=== PATIENT | male | born 1980 ===

== ENCOUNTER 2017-04-28 05:24 | Inpatient (IN) | payer BC ==
[2017-04-28] MEDS: LIDOCAINE/MYLANTA 40 ML BTL PO (09:25)
[2017-04-28] MEDS: FAMOTIDINE 20 MG TAB PO (09:25)
[2017-04-28 09:29] LABS: ADD MAN DIFF? NO
[2017-04-28 09:33] LABS: ADD UMIC YES; UR ASCORBIC ACID NEGATIVE (NEGATIVE); UR BILIRUBIN (Dip) NEGATIVE (NEGATIVE); UR BLOOD (Dip) 1+ mg/dL (NEGATIVE); UR CLARITY CLEAR (CLEAR); UR COLOR YELLOW (YELLOW); UR GLUCOSE (Dip) 3+ mg/dL (NEGATIVE); UR KETONES (Dip) 2+ mg/dL (NEGATIVE); UR LEUKOCYTE ESTERASE (Dip) NEGATIVE Leu/ul (NEGATIVE); UR NITRITE (Dip) NEGATIVE (NEGATIVE); UR RBC 1 /HPF (0-5); UR SPECIFIC GRAVITY (Dip) 1.033 (1.003-1.030); UR TOTAL PROTEIN (Dip) 2+ mg/dl (NEGATIVE); UR UROBILINOGEN (Dip) NEGATIVE (NEGATIVE); UR WBC 0 /HPF (0-5)
[2017-04-28 09:36] LABS: WHITE BLOOD COUNT 10.3 10^3/ul (4.8-10.8)
[2017-04-28 09:36] LABS: BASOPHILS % 0.2 % (0.0-2.0); EOSINOPHILS % 0.1 % (0.0-7.0); HEMATOCRIT 47.8 % (42.0-52.0); HEMOGLOBIN 17.4 g/dl (14.0-18.0); LYMPHOCYTES # 1.1 10^3/ul (0.8-2.9); LYMPHOCYTES % 10.3 % (15.0-51.0); MEAN CORPUSCULAR HEMOGLOBIN 31.6 pg (29.0-33.0); MEAN CORPUSCULAR HGB CONC 36.4 g/dl (32.0-37.0); MEAN CORPUSCULAR VOLUME 86.8 fl (82.0-101.0); MEAN PLATELET VOLUME 12.5 fl (7.4-10.4); MONOCYTE # 0.5 10^3/ul (0.3-0.9); MONOCYTES % 4.8 % (0.0-11.0); NEUTROPHIL # 8.6 10^3/ul (1.6-7.5); NEUTROPHILS % 84.2 % (39.0-77.0); PLATELET COUNT 124 10^3/UL (140-415); RED BLOOD COUNT 5.51 10^6/ul (4.70-6.10); RED CELL DISTRIBUTION WIDTH 12.5 % (11.5-14.5)
[2017-04-28 10:05] LABS: ALANINE AMINOTRANSFERASE 150 IU/L (13-69); ALBUMIN 4.5 g/dl (3.3-4.9); ALBUMIN/GLOBULIN RATIO 1.15; ALKALINE PHOSPHATASE 106 IU/L (42-121); ANION GAP 22 (8-16); ASPARTATE AMINO TRANSFERASE 49 IU/L (15-46); BILIRUBIN,INDIRECT 0.5 mg/dl (0-1.1); BILIRUBIN,TOTAL 0.5 mg/dl (0.2-1.3); BLOOD UREA NITROGEN 12 mg/dl (7-20); CARBON DIOXIDE 24 mmol/L (21-31); CHLORIDE 97 mmol/L (97-110); CREATININE 0.89 mg/dl (0.61-1.24); GLUCOSE 261 mg/dl (70-220); POTASSIUM 4.4 mmol/L (3.5-5.1); SODIUM 139 mmol/L (135-144); TOTAL PROTEIN 8.4 g/dl (6.1-8.1)
[2017-04-28 10:47] LABS: LIPASE 18890 U/L (23-300)
[2017-04-28] MEDS: SOD CHLORIDE 0.9% IV (10:50)
[2017-04-28] MEDS ORDERED: ONDANSETRON 4 MG INJ (11:24)
[2017-04-28 11:32] LABS: HEMOGLOBIN A1C 10.9 % (0-5.9)
[2017-04-28] MEDS: morphine 4 MG/ML VIAL IV (11:38)
[2017-04-28] MEDS: ONDANSETRON 4 MG INJ IV ×2 (11:39→18:32)
[2017-04-28 12:37] LABS: TROPONIN-I < 0.012 ng/ml (0.00-0.12)
[2017-04-28] MEDS: HYDROmorphONE 0.5 MG/0.5 ML SYG IV (13:56)
[2017-04-28] MEDS ORDERED: hydrALAzine 20 MG INJ IV (15:00)
[2017-04-28] MEDS ORDERED: LORAZEPAM 2 MG INJ IV (15:00)
[2017-04-28] MEDS ORDERED: NACL 0.9% 3 ML SYG IV (15:00)
[2017-04-28 15:23] LABS: ETHANOL < 10.0 mg/dl
[2017-04-28 15:27] LABS: BENZODIAZEPINES Positive (NEGATIVE); CANNABINOIDS Positive (NEGATIVE)
[2017-04-28] MEDS ORDERED: GLUCAGON 1 MG INJ IM (15:30)
[2017-04-28] MEDS ORDERED: GLUCOSE GEL 15 GRAM TUBE BUCCAL (15:30)
[2017-04-28] MEDS ORDERED: GLUCOSE GEL 15 GRAM TUBE PO ×2 (15:30)
[2017-04-28] MEDS ORDERED: DEXTROSE 50% 50 ML SYRINGE IV ×2 (15:30)
[2017-04-28 15:31] LABS: CHOLESTEROL 297 mg/dl (100-200)
[2017-04-28 15:31] LABS: CHOL/HDL RATIO 9.2 RATIO; HDL CHOLESTEROL 32 mg/dl (28-63)
[2017-04-28 15:33] LABS: AMPHETAMINE/METHAMPHETAMINE Negative (NEGATIVE); BARBITURATES Negative (NEGATIVE); COCAINE Negative (NEGATIVE); OPIATES Negative (NEGATIVE)
[2017-04-28] MEDS: SOD CHLORIDE 0.9% 1,000 ML IV ×3 (15:42→23:54)
[2017-04-28 15:55] LABS: TRIGLYCERIDES > 1575 mg/dl (0-149)
[2017-04-28] MEDS: INSULIN ASPART [NOVOLOG] 3 ML PEN SC ×3 (16:09→23:52)
[2017-04-28 16:37] LABS: FREE T4 (FREE THYROXINE) 1.08 ng/dl (0.79-2.35)
[2017-04-28] MEDS: morphine 2 MG INJ IV (18:32)
[2017-04-28] MEDS: GEMFIBROZIL 600 MG TAB PO (20:02)
[2017-04-28] MEDS: INSULIN GLARGINE [LANtus] 3 ML PEN SC (20:04)
[2017-04-28] MEDS: ACETAMINOPHEN 325 MG TAB PO (22:18)
[2017-04-28] MEDS: IOHEXOL 300MG/ML 150 ML BTL (23:30)
[2017-04-28] MEDS: SOD CHLORIDE 0.9% 100 ML (23:30)
[2017-04-29] MEDS: INSULIN ASPART [NOVOLOG] 3 ML PEN SC ×6 (04:10→23:30)
[2017-04-29] MEDS: HYDROCODONE/APAP (5/325) TAB PO ×3 (04:14→16:33)
[2017-04-29 06:00] LABS: ADD MAN DIFF? NO
[2017-04-29 06:07] LABS: ABNORMAL IP MESSAGE 1; BASOPHILS % 0.1 % (0.0-2.0); EOSINOPHILS # 0.1 10^3/ul (0.0-0.5); EOSINOPHILS % 0.8 % (0.0-7.0); HEMATOCRIT 43.3 % (42.0-52.0); HEMOGLOBIN 15.4 g/dl (14.0-18.0); LYMPHOCYTES # 0.9 10^3/ul (0.8-2.9); LYMPHOCYTES % 12.1 % (15.0-51.0); MEAN CORPUSCULAR HEMOGLOBIN 30.7 pg (29.0-33.0); MEAN CORPUSCULAR HGB CONC 35.6 g/dl (32.0-37.0); MEAN CORPUSCULAR VOLUME 86.3 fl (82.0-101.0); MEAN PLATELET VOLUME 12.2 fl (7.4-10.4); MONOCYTE # 0.5 10^3/ul (0.3-0.9); MONOCYTES % 6.3 % (0.0-11.0); NEUTROPHIL # 6.2 10^3/ul (1.6-7.5); NEUTROPHILS % 80.3 % (39.0-77.0); PLATELET COUNT 98 10^3/UL (140-415); POSITIVE DIFF @See below; RED BLOOD COUNT 5.02 10^6/ul (4.70-6.10)
[2017-04-29 06:07] LABS: WHITE BLOOD COUNT 7.8 10^3/ul (4.8-10.8)
[2017-04-29 06:37] LABS: ALANINE AMINOTRANSFERASE 94 IU/L (13-69); ALBUMIN 3.6 g/dl (3.3-4.9); ALBUMIN/GLOBULIN RATIO 1.16; ALKALINE PHOSPHATASE 66 IU/L (42-121); AMYLASE 326 U/L (11-123); ANION GAP 15 (8-16); ASPARTATE AMINO TRANSFERASE 27 IU/L (15-46); BILIRUBIN,INDIRECT 0.6 mg/dl (0-1.1); BILIRUBIN,TOTAL 0.6 mg/dl (0.2-1.3); BLOOD UREA NITROGEN 11 mg/dl (7-20); CALCIUM 8.5 mg/dl (8.4-10.2); CARBON DIOXIDE 24 mmol/L (21-31); CHLORIDE 105 mmol/L (97-110); CREATININE 0.88 mg/dl (0.61-1.24); GLUCOSE 175 mg/dl (70-220); POTASSIUM 3.9 mmol/L (3.5-5.1); SODIUM 140 mmol/L (135-144); TOTAL PROTEIN 6.7 g/dl (6.1-8.1)
[2017-04-29 06:50] LABS: PHOSPHORUS 2.4 mg/dl (2.5-4.9)
[2017-04-29 06:50] LABS: MAGNESIUM 1.9 mg/dl (1.7-2.5)
[2017-04-29 06:57] LABS: LIPASE 9524 U/L (23-300)
[2017-04-29] MEDS: SOD CHLORIDE 0.9% 1,000 ML IV ×4 (08:30→23:00)
[2017-04-29] MEDS: GEMFIBROZIL 600 MG TAB PO ×2 (08:34→20:00)
[2017-04-29] MEDS: INSULIN GLARGINE [LANtus] 3 ML PEN SC (19:53)
[2017-04-29] MEDS: morphine 2 MG INJ IV (21:57)
[2017-04-30] MEDS: SOD CHLORIDE 0.9% 1,000 ML IV ×6 (02:55→22:02)
[2017-04-30] MEDS: INSULIN ASPART [NOVOLOG] 3 ML PEN SC ×6 (02:56→21:00)
[2017-04-30 05:56] LABS: ADD MAN DIFF? NO
[2017-04-30 06:08] LABS: ABNORMAL IP MESSAGE 1; BASOPHILS % 0.2 % (0.0-2.0); EOSINOPHILS # 0.1 10^3/ul (0.0-0.5); EOSINOPHILS % 1.2 % (0.0-7.0); HEMATOCRIT 39.6 % (42.0-52.0); HEMOGLOBIN 13.7 g/dl (14.0-18.0); LYMPHOCYTES # 1.3 10^3/ul (0.8-2.9); LYMPHOCYTES % 16.1 % (15.0-51.0); MEAN CORPUSCULAR HEMOGLOBIN 30.9 pg (29.0-33.0); MEAN CORPUSCULAR HGB CONC 34.6 g/dl (32.0-37.0); MEAN CORPUSCULAR VOLUME 89.4 fl (82.0-101.0); MEAN PLATELET VOLUME 11.9 fl (7.4-10.4); MONOCYTE # 0.5 10^3/ul (0.3-0.9); MONOCYTES % 6.3 % (0.0-11.0); NEUTROPHIL # 6.2 10^3/ul (1.6-7.5); NEUTROPHILS % 75.8 % (39.0-77.0); PLATELET COUNT 93 10^3/UL (140-415); POSITIVE DIFF @See below; RED BLOOD COUNT 4.43 10^6/ul (4.70-6.10); RED CELL DISTRIBUTION WIDTH 13.4 % (11.5-14.5)
[2017-04-30 06:08] LABS: WHITE BLOOD COUNT 8.2 10^3/ul (4.8-10.8)
[2017-04-30 06:46] LABS: ALANINE AMINOTRANSFERASE 64 IU/L (13-69); ALBUMIN 3.3 g/dl (3.3-4.9); ALKALINE PHOSPHATASE 61 IU/L (42-121); ANION GAP 15 (8-16); ASPARTATE AMINO TRANSFERASE 20 IU/L (15-46); BILIRUBIN,INDIRECT 0.6 mg/dl (0-1.1); BILIRUBIN,TOTAL 0.6 mg/dl (0.2-1.3); BLOOD UREA NITROGEN 12 mg/dl (7-20); CALCIUM 8.6 mg/dl (8.4-10.2); CARBON DIOXIDE 23 mmol/L (21-31); CHLORIDE 107 mmol/L (97-110); CREATININE 0.99 mg/dl (0.61-1.24); GLUCOSE 131 mg/dl (70-220); LIPASE 1879 U/L (23-300); POTASSIUM 4.2 mmol/L (3.5-5.1); SODIUM 141 mmol/L (135-144); TOTAL PROTEIN 6.6 g/dl (6.1-8.1)
[2017-04-30] MEDS: HYDROCODONE/APAP (5/325) TAB PO (07:15)
[2017-04-30] MEDS: GEMFIBROZIL 600 MG TAB PO ×2 (08:31→19:55)
[2017-04-30] MEDS: INSULIN GLARGINE [LANtus] 3 ML PEN SC (20:04)
[2017-04-30] MEDS ORDERED: MIRTAZAPINE 15 MG TAB PO (21:00)
[2017-04-30] MEDS: ALPRAZOLAM 0.25 MG TAB PO (21:29)
[2017-05-01] MEDS: SOD CHLORIDE 0.9% 1,000 ML IV ×2 (06:08→14:58)
[2017-05-01 06:58] LABS: ADD MAN DIFF? NO
[2017-05-01 07:04] LABS: WHITE BLOOD COUNT 6.1 10^3/ul (4.8-10.8)
[2017-05-01 07:04] LABS: BASOPHILS % 0.2 % (0.0-2.0); EOSINOPHILS # 0.2 10^3/ul (0.0-0.5); EOSINOPHILS % 3.3 % (0.0-7.0); HEMATOCRIT 41.6 % (42.0-52.0); HEMOGLOBIN 14.6 g/dl (14.0-18.0); LYMPHOCYTES % 17.1 % (15.0-51.0); MEAN CORPUSCULAR HEMOGLOBIN 30.5 pg (29.0-33.0); MEAN CORPUSCULAR HGB CONC 35.1 g/dl (32.0-37.0); MEAN CORPUSCULAR VOLUME 86.8 fl (82.0-101.0); MEAN PLATELET VOLUME 11.4 fl (7.4-10.4); MONOCYTE # 0.4 10^3/ul (0.3-0.9); MONOCYTES % 6.2 % (0.0-11.0); NEUTROPHIL # 4.5 10^3/ul (1.6-7.5); NEUTROPHILS % 73.2 % (39.0-77.0); POSITIVE DIFF @See below; RED BLOOD COUNT 4.79 10^6/ul (4.70-6.10); RED CELL DISTRIBUTION WIDTH 12.9 % (11.5-14.5)
[2017-05-01 07:20] LABS: PLATELET COUNT 122 10^3/UL (140-415)
[2017-05-01 07:34] LABS: ALANINE AMINOTRANSFERASE 62 IU/L (13-69); ALBUMIN 3.5 g/dl (3.3-4.9); ALKALINE PHOSPHATASE 76 IU/L (42-121); ANION GAP 19 (8-16); ASPARTATE AMINO TRANSFERASE 29 IU/L (15-46); BILIRUBIN,INDIRECT 0.4 mg/dl (0-1.1); BILIRUBIN,TOTAL 0.4 mg/dl (0.2-1.3); BLOOD UREA NITROGEN 11 mg/dl (7-20); CALCIUM 8.7 mg/dl (8.4-10.2); CARBON DIOXIDE 18 mmol/L (21-31); CHLORIDE 109 mmol/L (97-110); CREATININE 0.83 mg/dl (0.61-1.24); GLUCOSE 138 mg/dl (70-220); POTASSIUM 3.9 mmol/L (3.5-5.1); SODIUM 142 mmol/L (135-144)
[2017-05-01] MEDS: GEMFIBROZIL 600 MG TAB PO (07:52)
[2017-05-01] MEDS: INSULIN ASPART [NOVOLOG] 3 ML PEN SC ×2 (07:59→12:01)
== END 2017-05-01 17:40 | disposition home or self-care (01) | DRG 440 ==
LOC: FTE 05:24 → MS2 14:59
DX: K85.90 Acute pancreatitis without necrosis or infection, unspecified (principal); E11.9 Type 2 diabetes mellitus without complications; E78.5 Hyperlipidemia, unspecified; E66.9 Obesity, unspecified; F10.20 Alcohol dependence, uncomplicated; Z68.29 Body mass index [BMI] 29.0-29.9, adult
CPT/HCPCS: 36415; 74177; 76705; 80053; 80061; 80306; 80307; 81001; 82150; 82962; 83036; 83690; 83735; 84100; 84439; 84443; 84484; 85025; 87040; 93005; 96361; 96372; 96374; 96375; 96376; 99285-25